=== PATIENT | male | born 1985 | race American Indian/Alaskan Native ===

== ENCOUNTER 2018-05-19 19:46 | Emergency (ER) | payer MEDICAID ==
[~2018-05-19] VITALS: Ht 190.5 cm; Wt 100.0 kg
[2018-05-19] MEDS ORDERED: iohexol 300mg/ml 100ml inj. ONE (20:42)
[2018-05-19 21:55] VITALS: BP 113/68
== END 2018-05-19 21:56 | disposition home or self-care (01) ==
LOC: ER 19:46
DX: S20.02XA Contusion of left breast, initial encounter (principal); S20.212A Contusion of left front wall of thorax, initial encounter; R10.12 Left upper quadrant pain; F17.200 Nicotine dependence, unspecified, uncomplicated; Z86.19 Personal history of other infectious and parasitic diseases; Z56.0 Unemployment, unspecified; Z88.8 Allergy status to other drugs, medicaments and biological substances; Z88.2 Allergy status to sulfonamides; X58.XXXA Exposure to other specified factors, initial encounter; Y93.89 Activity, other specified; Y92.89 Other specified places as the place of occurrence of the external cause; Y99.8 Other external cause status
CPT/HCPCS: 71046; 74177; 99284; J7030; Q9967

== ENCOUNTER 2019-01-07 10:15 | Day surgery (SDC) | payer MEDICAID ==
[2019-01-07] VITALS (7 sets, daily range): BP systolic 98–123; BP diastolic 55–79
[~2019-01-07] VITALS: Ht 185.4 cm; Wt 117.8 kg
[~2019-01-07 10:15] MED LIST: IBUP-1984 PO; NABU750T2 PO; famotidine 20mg tablet PO ONE; levoFLOXACIN-Levaquin 500mg/D5 100 ML IV ONE; ringers solution, lacted 1,000 ML IV SCH; vancomycin inj 1,500 MG in normal saline 300ml IV soln IV ONE
[2019-01-07 11:46] LABS: BASOPHILS % (AUTO) 0.6 % (0-1); EOSINOPHILS # (AUTO) 0.1 X10'3 (0-0.9); EOSINOPHILS % (AUTO) 1.4 % (0-6); HEMATOCRIT 42.1 % (42.0-52.0); HEMOGLOBIN 14.4 g/dl (14.0-17.9); LYMPHOCYTES # (AUTO) 2.1 X10'3 (1.1-4.8); LYMPHOCYTES % (AUTO) 35.6 % (21-51); MEAN CORPUSCULAR HEMOGLOBIN 29.3 PG (27.0-31.0); MEAN CORPUSCULAR HGB CONC 34.2 g/dL (33.0-36.5); MEAN CORPUSCULAR VOLUME 85.4 FL (78-98); MEAN PLATELET VOLUME 9.2 FL (7.4-10.4); MONOCYTES # (AUTO) 0.5 X10'3 (0-0.9); MONOCYTES % (AUTO) 8.9 % (2-12); NEUTROPHILS # (AUTO) 3.1 X10'3 (1.8-7.7); NEUTROPHILS % (AUTO) 53.5 % (42-75); PLATELET COUNT 205 X10'3 (140-440); RED BLOOD COUNT 4.93 X10'6 (4.70-6.10); RED CELL DISTRIBUTION WIDTH 14.6 % (11.5-14.5); WHITE BLOOD COUNT 5.9 X10'3 (4.5-11.0)
[2019-01-07 11:51] LABS: ALANINE AMINOTRANSFERASE 60 U/L (12-78); ALBUMIN 3.9 G/DL (3.4-5.0); ALKALINE PHOSPHATASE 68 IU/L (46-116); ANION GAP 9 (8-16); ASPARTATE AMINO TRANSFERASE 28 U/L (10-37); BILIRUBIN,TOTAL 0.9 MG/DL (0.1-1.0); BLOOD UREA NITROGEN 16 MG/DL (7-18); BUN/CREATININE RATIO 20.8 (5.4-32.0); CALCIUM 8.9 MG/DL (8.5-10.1); CHLORIDE 103 MMOL/L (99-107); CREATININE 0.77 MG/DL (0.60-1.10); GLUCOSE 87 MG/DL (70-104); POTASSIUM 3.8 MMOL/L (3.5-5.1); SODIUM 140 MMOL/L (135-145); TOTAL PROTEIN 7.8 G/DL (6.4-8.2); eGFR > 90 ML/MIN
--- NOTE | 2019-01-07 12:24 | NUR ---
PER PT HE IS HEP C+ BUT IN REMISSION Addendum: 01/07/19 at 1224 by Diana Wetzel RN Amended: Links added.
[2019-01-07] MEDS ORDERED: BUPIVAcaine/PF 2.5mg/ml (0.25%) 10ml vial ONE (14:03)
[2019-01-07] MEDS ORDERED: rocuronium 10mg/ml inj IV ONE (14:11)
[2019-01-07] MEDS ORDERED: sevoflurane 250ml liquid IH ONE (14:11)
[2019-01-07] MEDS ORDERED: midazolam 2 mg/2 ml injection ONE (14:13)
[2019-01-07] MEDS ORDERED: propofol inj 20 ML IV ONE (14:13)
[2019-01-07] MEDS ORDERED: fentaNYL /PF 50mcg/ml 5ml ampule ONE (14:13)
[2019-01-07] MEDS ORDERED: ringers solution, lacted 1,000 ML IV SCH (15:04)
[2019-01-07] MEDS ORDERED: proCHLORperazine 10 MG/2 ml inj IV PRN (15:05)
[2019-01-07] MEDS ORDERED: morphine 4 MG/ML inj SYRINge IV PRN ×2 (15:05)
[2019-01-07] MEDS ORDERED: meperidine/PF 25mg/ml syringe IV PRN ×3 (15:05)
[2019-01-07] MEDS ORDERED: ondansetron/PF 4mg/2ml inj IV PRN (15:05)
--- NOTE | 2019-01-07 15:17 | NUR ---
Received from OR via [facility] , accompanied by Anesthesiologist RAJ and report given by Anesthesiolgist. PATIENT WITH 20G PIV IN LEFT UE RUNNING LR AT 100. PATIENT WITH LEFT KNEE DRESSING THAT IS CDI. + CAP REFILL, = SENSATION. PATIENT CRYING AND WITH C.O. PAIN IN HIS BACK. SAT PATIENT UP WITH NO RELIEF, LAYED PATIENT BACK WITH NO RELIEF. PATIENT UNABLE TO BE CONSOLED AT THIS TIME. MD AWARE OF THIS. VSS AT THIS TIME. Addendum: 01/07/19 at 1529 by Mannie Nur RN, RN Amended: Links added.
--- NOTE | 2019-01-07 16:17 | NUR ---
ALL DC CRITERIA HAS BEEN MET. IV TAKEN OUT WITHOUT COMPLICATIONS. ALL INSTRUCTIONS COVERED AND ALL QUESTIONS ANSWERED. DRESSINGS CDI. OUT VIA WHEELCHAIR TO PERSONAL VEHICLE WHERE PATIENT WAS SECURED IN AND DRIVEN HOME BY FAMILY. ASSISTED WITH DRESSING AND PATIENT STOOD AND TRANSFERED TO WHEELCHAIR THEN INTO TRUCK INDEPENDENTLY. Addendum: 01/07/19 at 1633 by Mannie Nur RN, RN Amended: Links added.
== END 2019-01-07 16:17 | disposition home or self-care (01) ==
LOC: PAS 10:15
PROVIDERS: ATTEND Orthopaedic Surgery
DX: S83.282A Other tear of lateral meniscus, current injury, left knee, initial encounter (principal); S83.242A Other tear of medial meniscus, current injury, left knee, initial encounter; M22.42 Chondromalacia patellae, left knee; M17.12 Unilateral primary osteoarthritis, left knee; E66.9 Obesity, unspecified; F41.9 Anxiety disorder, unspecified; X58.XXXA Exposure to other specified factors, initial encounter; Y93.89 Activity, other specified; Y99.8 Other external cause status; Y92.89 Other specified places as the place of occurrence of the external cause; Z87.891 Personal history of nicotine dependence; Z68.34 Body mass index [BMI] 34.0-34.9, adult; Z88.8 Allergy status to other drugs, medicaments and biological substances
CPT/HCPCS: 27347; 29873; 29879; 29880; 36415; 80053; 82948; 85025; A6449; J1956; J2250; J2704; J3010; J3370; J3490; A6250; A7000; J7030; J7120

== ENCOUNTER 2022-12-24 19:16 | Emergency (ER) | payer MEDICAID ==
[~2022-12-24] VITALS: Ht 185.4 cm; Wt 113.6 kg
[~2022-12-24 19:16] MED LIST changes: +NABU-141 PO; -NABU750T2 PO; -famotidine 20mg tablet PO ONE; -levoFLOXACIN-Levaquin 500mg/D5 100 ML IV ONE; -ringers solution, lacted 1,000 ML IV SCH; -vancomycin inj 1,500 MG in normal saline 300ml IV soln IV ONE
[2022-12-24 20:01] VITALS: BP 120/69
[2022-12-24] MEDS ORDERED: ibuprofen tablet 400 MG TABLET PO ONE (21:25)
[2022-12-24] MEDS ORDERED: amox tr/potassium clavulanate 875/125mg TAB PO ONE (21:25)
[2022-12-24] MEDS ORDERED: AMOX-117 PO (21:28)
== END 2022-12-24 21:41 | disposition home or self-care (01) ==
LOC: ER 19:17
DX: H66.91 Otitis media, unspecified, right ear (principal); F12.90 Cannabis use, unspecified, uncomplicated; Z88.1 Allergy status to other antibiotic agents; Z88.2 Allergy status to sulfonamides
CPT/HCPCS: 99283

== ENCOUNTER 2023-01-07 16:08 | Emergency (ER) | payer MEDICAID ==
[~2023-01-07] VITALS: Ht 185.4 cm; Wt 104.5 kg
[2023-01-07 16:26] VITALS: BP 138/101
[2023-01-07] MEDS ORDERED: triamcinolone acetonide 40mg/ml inj IM ONE (16:30)
== END 2023-01-07 17:15 | disposition home or self-care (01) ==
LOC: ER 16:08
DX: L23.7 Allergic contact dermatitis due to plants, except food (principal); F17.200 Nicotine dependence, unspecified, uncomplicated; F12.90 Cannabis use, unspecified, uncomplicated; Z86.19 Personal history of other infectious and parasitic diseases; Z88.8 Allergy status to other drugs, medicaments and biological substances; Z88.2 Allergy status to sulfonamides; Z79.899 Other long term (current) drug therapy
CPT/HCPCS: 96372; 99283; J3301